=== PATIENT | male | born 2005 | race Caucasian/White ===

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

== ENCOUNTER 2023-11-25 16:26 | Emergency (ER) | payer OTHER, SELFPAY ==
[2023-11-25] VITALS (9 sets, daily range): BP systolic 107–135; BP diastolic 63–84; PULSE 79–95; RESP 9–25; TEMP 36.6–37.1; O2SAT 99–100
--- NOTE | 2023-11-25 16:48 | EKG_ITS ---
[address] [address] Test Date: 2023-11-25 Pat Name: Lazaro Rod Department: [facility] Room: Gender: Male Manager Corporate: ALESSANDRO : 2005 Requested By: Order Number: [id number] Reading MD: Jeronimo Hough Measurements Intervals [place] Rate: 74 P: RI: QRS: 59 QRSD: 108 T: 66 QT: 372 QTc: 412 Interpretive Statements Atrial fibrillation Electronically Signed On 11-26-2023 7:28:09 PDT by Jeronimo Hough
--- NOTE | 2023-11-25 16:55 | ED_ITS ---
HPI - Syncope General Chief Complaint: Syncope Stated Complaint: syncope T-1/head inj/V Time Seen by Provider: 11/25/23 16:53 Source: patient Mode of arrival: Ambulatory Limitations: no limitations History of Present Illness HPI narrative: patient is a 18-year-old male with no significant past medical history comes into the ED from home for evaluation of syncopal episode patient states that at around 1:00 a.m. he was brushing his teeth/flossing his teeth when he did gag due to the fact that he states he took out something nasty. States that he did gag and vomit a small amount and then states he felt lightheaded and woke up on the floor. He states that he currently not having any headache visual disturbances chest pain shortness breath fever chills nausea vomiting abdominal pain or any other GI/ symptoms time. States he just feels somewhat tired. Not on any blood thinners Related Data Previous Rx's Medication Instructions Recorded apixaban 5 mg tablet (Eliquis) 5 mg PO BID #14 tabs 11/25/23 Allergies Allergy/AdvReac Type Severity Reaction Status Date / Time amoxicillin [AMOXICILLIN] Allergy Unknown Verified 11/25/23 16:40 Review of Systems Review of Systems Narrative: HEENT: Denies headache, eye drainage, eye irritation, head trauma, sore throat, voice change Cardiovascular: Denies any chest pain, palpitations, shortness of breath, tachycardia Respiratory: Denies any shortness of breath, cough, wheeze, stridor GI/: Denies any abdominal pain, nausea, vomiting, diarrhea, bright red blood per rectum, melanotic stools, urinary frequency, urinary retention, dysuria, hematuria MSK: Denies any joint pain, muscle pains, swelling Skin: Denies any rashes, lesions, discoloration Neuro: Denies any headache, lightheadedness, dizziness, fainting, weakness, Positive syncope Psych: Denies SI/HI Patient History Social History Smoking Status: Current some day smoker Smoking Status: Current some day smoker tobacco type: vaping and smokeless tobacco alcohol intake frequency: a few times a month Substance Use Type: marijuana Exam Narrative Exam Narrative: General: Cooperative, comfortable, well-developed, not in acute distress HEENT: Normocephalic, atraumatic, PERRLA, normal sclera, eyelids normal, Neck: Active full range of motion, atraumatic Chest: Normal to inspection, negative crepitus, no overlying erythema ecchymosis Respiratory: Normal respiratory effort, not in acute respiratory distress, clear to auscultation bilaterally negative cough, wheeze, tachypnea, rhonchi, rales Cardiology: Irregularly irregular, no murmur, GI/: Normal to inspection, soft, nonrigid, no tenderness to palpation, exam deferred MSK: Full range of active range of motion of all 4 extremities, atraumatic Skin: No rashes lesions noted Neuro: Alert awake oriented x3, moves all 4 extremities spontaneously, cranial nerves intact, able to answer all questions appropriately follows commands appropriately Psych: Cooperative, negative suicidal or homicidal ideations Initial Vital Signs Initial Vital Signs: Vital Signs Temperature 98.7 F 11/25/23 16:29 Pulse Rate 84 11/25/23 16:29 Respiratory Rate 18 11/25/23 16:29 Blood Pressure 118/84 11/25/23 16:29 Pulse Oximetry 99 11/25/23 16:29 Oxygen Delivery Method Room Air 11/25/23 16:29 Course Orders Ordered: ED Orders 11/25/23 16:43 EKG-12 Lead Stat 11/25/23 16:57 Complete Blood Count AUTO DIFF Stat Comprehensive Metabolic Panel Stat Lipase Stat MAG [Magnesium] Stat TSH [Thyroid Stimulating Hormone] Stat Troponin & CK Cardiac Panel Stat 11/25/23 17:05 XR chest 1V Stat Sodium Chloride (Normal Saline 0.9%) 1,000 mls @ 150 mls/hr IV CONT LENA Last Admin: 11/25/23 17:23 Dose: 150 mls/hr Documented By: MPO Discontinued Medications Apixaban (Apixaban 5 Mg Tablet) 5 mg PO NOW ONE Stop: 11/25/23 18:09 Last Admin: 11/25/23 18:28 Dose: 5 mg Documented By: RLS Magnesium Sulfate (Magnesium Sulfate) 2 gm in 50 mls @ 150 mls/hr IV NOW ONE Stop: 11/25/23 17:24 Last Infusion: 11/25/23 17:44 Dose: Infused Documented By: RB Co-signed By: DELFINA Admin: 11/25/23 17:23 Dose: 150 mls/hr Documented By: ROSETTE Co-signed By: DELFINA Vital Signs Vital signs: Vital Signs - 8 hr 11/25/23 16:29 11/25/23 16:44 11/25/23 16:45 Temperature 98.7 F Pulse Rate 84 89 Respiratory Rate 18 Blood Pressure 118/84 123/82 Pulse Oximetry 99 100 Oxygen Delivery Method Room Air 11/25/23 16:45 11/25/23 17:00 11/25/23 17:00 Temperature Pulse Rate 85 88 Respiratory Rate 13 13 Blood Pressure 135/83 Pulse Oximetry 100 100 Oxygen Delivery Method 11/25/23 17:30 11/25/23 17:30 11/25/23 18:00 Temperature Pulse Rate 79 89 Respiratory Rate 11 L 9 L Blood Pressure 115/66 Pulse Oximetry 100 100 Oxygen Delivery Method 11/25/23 18:00 Temperature Pulse Rate Respiratory Rate Blood Pressure 133/77 Pulse Oximetry Oxygen Delivery Method MDM - Syncope Differential Diagnosis Differential diagnosis: Likely syncope due to orthostatic hypotension, vasovagal syncope, dehydration and other (afib) Condition is:: Well Controlled Medical Records Attestation: I reviewed the patient's medical records. Lab Data Attestation: I reviewed the patient's lab results. 11/25/23 16:57 11/25/23 16:57 Labs: Lab Results 11/25/23 Range/Units 16:57 WBC 10.2 (4.5-11.0) X10^3/uL RBC 6.22 H (4.5-5.9) X10^6/uL Hgb 17.5 (13.5-17.5) g/dL Hct 51.5 (41-53) % MCV 82.9 (80-100) fL MCH 28.1 (26-34) PG MCHC 33.9 (30-36) % RDW 13.7 (11.6-14.8) % Plt Count 268 (150-400) X10^3/uL Neut % (Auto) 43.6 L (50-75) % Lymph % (Auto) 45.8 H (25-40) % Banks % (Auto) 9.1 (3-14) % Eos % (Auto) 0.9 L (2-4) % Baso % (Auto) 0.6 (0-2) % Neut # (Auto) 4400 (0240-9373) /uL Lymph # (Auto) 4700 H (8732-8297) /uL Banks # (Auto) 900 (0-900) /uL Eos # (Auto) 100 (0-450) /uL Baso # (Auto) 100 (0-100) /uL Sodium 136 L (137-145) mmol/L Potassium 4.3 (3.4-5.1) mmol/L Chloride 106 (98-107) mmol/L Carbon Dioxide 21 L (22-32) mmol/L BUN 20 (9-20) mg/dL Creatinine 0.86 (0.66-1.25) mg/dL Estimated GFR > 60 (>60) mL/min BUN/Creatinine Ratio 23.3 H (6-22) Glucose 98 (70-100) mg/dL Calcium 9.5 (8.4-10.2) mg/dL Magnesium 2.4 H (1.6-2.3) mg/dL Total Bilirubin 1.1 (0.2-1.3) mg/dL AST 51 (17-59) IU/L ALT 100 H (<50) IU/L Alkaline Phosphatase 73 (38-126) U/L Total Creatine Kinase 95 (55-170) U/L Troponin I < 0.012 (0.01-0.034) ng/mL Total Protein 7.9 (6.3-8.2) g/dL Albumin 4.8 (3.5-5.0) g/dL Globulin 3.1 (1.7-4.1) g/dL Albumin/Globulin Ratio 1.5 (1.0-2.8) Lipase 67 (23-300) U/L ECG Data Attestation: I personally reviewed and interpreted this ECG as follows: Interpretation: EKG interpreted by ED physician, atrial fibrillation 74 beats per minute, QTC 412, normal axis, nonspecific ST changes, no STEMI MDM Narrative Medical decision making narrative: patient is a 18-year-old male with no past medical history presents to the ED for evaluation of syncopal episode. He states that this happened at around 1:00 a.m., states that it was secondary to gagging/throwing up after cleaning his teeth when he saw something disgusting. at time of initial evaluation patient is not complaining of any headache visual disturbances chest pain shortness breath fever chills nausea vomiting abdominal pain or any other GI/ symptoms time, EKG is showing patient rate controlled atrial fibrillation, patient states no history of this, adamantly denies any chest pain shortness of breath. Chads Vasc 0. lab work otherwise unremarkable Discussion with Dr. Kota Manzo, of cardiology was performed, states that given the fact that patient is not symptomatic at this time, currently rate controlled, would recommend starting patient on oral anticoagulation for possible cardioversion when patient follows up in an outpatient setting. Informed patient and family member of plan for anticoagulation outpatient setting and follow-up with cardiology in an urgent setting, they verbalized understanding of this and agree with this plan. Discharge Plan Departure Patient Disposition: Home Clinical Impression: A-fib Qualifiers: Atrial fibrillation type: unspecified Qualified Code(s): I48.91 - Unspecified atrial fibrillation Instructions: DI for Atrial Fibrillation, Apixaban Activity Restrictions/Additional Instructions: Please follow-up with cardiology in the next 24 hours for your new diagnosis of atrial fibrillation, continue the blood thinner Eliquis until you see the pet adoption counselor Please read the discharge instructions sheet carefully and bring all papers to all doctor follow-up visits, as it may contain information that your doctor may want to see. Disease processes change and evolve, if your symptoms worsen or if you develop any new symptoms that are concerning to you please return for evaluation. Your evaluation today does not show any evidence of any life- threatening/serious illnesses requiring admission to the hospital or surgery. Please follow-up with your doctor for re-evaluation in approximately 1 day. Seek immediate medical attention for any worrisome symptoms. Prescriptions: New Eliquis 5 mg tablet 5 mg PO BID Qty: 14 0RF Referrals: Kota Manzo MD [Physician] - 11/26/23 (New onset afib ) Ifeanyi Chery DO [Primary Care Provider] - Stand Alone Forms: Patient Portal/API
--- NOTE | 2023-11-25 17:05 | DI.RAD.S_ITS ---
PROCEDURE: XR CHEST 1V INDICATIONS: syncope TECHNIQUE: One view of the chest was acquired. COMPARISON: None. FINDINGS: Surgical changes and devices: None. Lungs and pleura: Lungs are clear. No pleural effusions or pneumothorax. Mediastinum: Mediastinal contours appear normal. Heart size is normal. Bones and chest wall: No suspicious bony lesions. Overlying soft tissues appear unremarkable. IMPRESSION: No acute cardiopulmonary pathology. Dictated by: Ron Manzo M.D. on 11/25/2023 at 17:29 Approved by: Ron Manzo M.D. on 11/25/2023 at 17:30
[2023-11-25 17:16] LABS: Add Manual Diff / Slide Review NO; Basophils Absolute Auto 100 /uL (0-100); Basophils Percent Auto 0.6 % (0-2); Eosinophils Absolute Auto 100 /uL (0-450); Eosinophils Percent Auto 0.9 % (2-4); Hematocrit 51.5 % (41-53); Hemoglobin 17.5 g/dL (13.5-17.5); Lymphocytes Absolute Auto 4700 /uL (1100-4500); Lymphocytes Percent Auto 45.8 % (25-40); Mean Corpuscular HGB Conc 33.9 % (30-36); Mean Corpuscular Hemoglobin 28.1 PG (26-34); Mean Corpuscular Volume 82.9 fL (80-100); Monocytes Absolute Auto 900 /uL (0-900); Monocytes Percent Auto 9.1 % (3-14); Neutrophils Absolute Auto 4400 /uL (1500-7000); Neutrophils Percent Auto 43.6 % (50-75); Platelet Count 268 X10^3/uL (150-400); Red Blood Cell Count 6.22 X10^6/uL (4.5-5.9); Red Cell Distribution Width 13.7 % (11.6-14.8); White Blood Cell Count 10.2 X10^3/uL (4.5-11.0)
[2023-11-25 17:20] LABS: Alanine Aminotransferase 100 IU/L (<50); Albumin 4.8 g/dL (3.5-5.0); Albumin Globulin Ratio 1.5 (1.0-2.8); Alkaline Phosphatase 73 U/L (38-126); Aspartate Aminotransferase 51 IU/L (17-59); BUN Creatinine Ratio 23.3 (6-22); Bilirubin Total 1.1 mg/dL (0.2-1.3); Blood Urea Nitrogen 20 mg/dL (9-20); Calcium 9.5 mg/dL (8.4-10.2); Carbon Dioxide 21 mmol/L (22-32); Chloride 106 mmol/L (98-107); Creatine Kinase 95 U/L (55-170); Estimated Glomerular Filt Rate > 60 mL/min (>60); Globulin 3.1 g/dL (1.7-4.1); Glucose 98 mg/dL (70-100); HEMOLYSIS 41 (0-50); Lipase 67 U/L (23-300); Magnesium 2.4 mg/dL (1.6-2.3); Potassium 4.3 mmol/L (3.4-5.1); Sodium 136 mmol/L (137-145); Total Protein 7.9 g/dL (6.3-8.2)
[2023-11-25] MEDS: MAGNESIUM SULFATE 2 GM/50 ML PIGGYBACK IV (17:23)
[2023-11-25] MEDS: SODIUM CHLORIDE 0.9% 1,000 ML 150 ML IV (17:23)
[2023-11-25 17:31] LABS: Troponin I < 0.012 ng/mL (0.01-0.034)
[2023-11-25] MEDS: APIXABAN 5 MG TABLET PO (18:28)
[2023-11-25 19:16] LABS: Thyroid Stimulating Hormone 0.941 uIU/mL (0.47-4.68)
== END 2023-11-25 19:20 | disposition home or self-care (01) ==
PROVIDERS: Emergency Provider Student in an Organized Health Care Education/Training Program; Family Provider Pediatrics; PCP Family Medicine
DX: I48.91 Unspecified atrial fibrillation (principal); Z79.01 Long term (current) use of anticoagulants
CPT/HCPCS: 36415; 71045; 80053; 82550; 83690; 83735; 84443; 84484; 85025; 93005; 96360; 96361; 99284; J3475

== ENCOUNTER → 2024-04-07 10:34 | Outpatient (CLI) | payer OTHER, SELFPAY ==
[2024-04-07 14:28] LABS: Influenza A - CEPHEID Flu A POSITIVE (NEGATIVE); Influenza B - CEPHEID Flu B NEGATIVE (NEGATIVE); Respiratory Syncytial Virus Negative (Negative)
[2024-04-07 14:29] LABS: COVID-19 CEPHEID 4-PLEX PCR Negative (Negative)
== END ==
PROVIDERS: Family Provider Pediatrics; PCP Family Medicine; Visit Provider Family Medicine
DX: R05.9 Cough, unspecified (principal); R50.9 Fever, unspecified
CPT/HCPCS: 0241U